=== PATIENT | male | born 1960 | race Caucasian/White ===

== ENCOUNTER 2016-12-12 05:54 | Day surgery (SDC) | payer BC ==
[2016-12-12] MEDS ORDERED: ceFAZolin 2 GM/DEXTROSE 100 ML IV ONE (06:00)
[2016-12-12] MEDS ORDERED: LR 1,000 ML IV ONE (06:17)
[2016-12-12] MEDS ORDERED: LIDOCAINE 1% 5 ML SDV ID PRN (06:17)
[2016-12-12] MEDS ORDERED: LIDOCAINE 1% 5 ML SDV ONE (06:19)
[2016-12-12] MEDS ORDERED: fentaNYL 100 MCG/2 ML INJ ONE ×3 (06:49→08:56)
[2016-12-12] MEDS ORDERED: PROPOFOL 200 MG/20 ML VIAL ONE ×2 (06:50)
[2016-12-12] MEDS ORDERED: LIDOCAINE 2% 100 MG/5 ML SYR IVP ONE (06:52)
[2016-12-12] MEDS ORDERED: BUPIVACAINE 0.5% 30 ML SDV ONE (07:07)
[2016-12-12] MEDS ORDERED: MIDAZOLAM 2 MG/2 ML VIAL ONE (07:07)
[2016-12-12] MEDS ORDERED: DEXAMETHASONE 4 MG/ML VIAL ONE (07:44)
[2016-12-12] MEDS ORDERED: ONDANSETRON 4 MG/2 ML VIAL ONE (07:44)
[2016-12-12] MEDS ORDERED: KETOROLAC 30 MG/1 ML SDV ONE (08:09)
[2016-12-12] MEDS ORDERED: SUGAMMADEX SODIUM 200 MG/2 ML VIAL IVP ONE (08:10)
[2016-12-12] MEDS ORDERED: OXYCODONE/APAP 5/325 TAB ONE (09:24)
--- NOTE | 2016-12-18 15:01 | GOP ---
[f rep st] OPERATIVE REPORT DATE OF OPERATION: 12/12/2016 SURGEON: Klever Roger MD COSMETICS MACHINE OPERATOR: GLENYS Bowman ANESTHESIOLOGIST: Dr. Zelalem Aguilar PREOPERATIVE DIAGNOSIS: Bilateral inguinal hernias and umbilical hernia. POSTOPERATIVE DIAGNOSIS: Bilateral inguinal hernias and umbilical hernia. PROCEDURE PERFORMED: Laparoscopic bilateral inguinal hernia repairs with mesh and umbilical hernia r epair. FINDINGS: Patient was found to have a 1 cm umbilical defect. He had a left large, indirect cord lip matthew and a right direct weakness on the other side. DESCRIPTION OF PROCEDURE: Patient taken to the operating room, where he received satisfactory genera l endotracheal anesthesia. He was prepped and draped in the usual sterile fashion. Infraumbilical incision was made. Dissection was carried down to the rectus sheath, which was incise d. A subfascial tunnel was developed in the preperitoneal space and was dissected free with a balloo n dissector, which was replaced with a CO2 insufflation trocar. Two other trocars were placed in the lower midline under direct vision. Brett's ligament was exposed bilaterally. The cords were mobilized bilaterally. On the left, a lar ge, indirect lipoma was dissected free along with a small trigger indirect sac. These were reduced. There was no direct defect. Covidien polyester mesh patch was placed over the inguinal floor, ancho red in place with AbsorbaTack, securing it to Brett's ligament, the lacunar ligament, the anterior a bdominal wall, and lateral abdominal wall outside the internal ring. Attention was turned to the right side, where a direct defect was dissected free and reduced. A doni lar patch was placed on that side and anchored in the same manner. Hemostasis was assured. Trocars were then removed under direct vision and Pneumopreperitoneum was released. Trocar sites wer e closed with 0 Vicryl for the fascia, 4-0 Monocryl subcuticular stitch for the skin. Attention was turned to the umbilical hernia defect. This was dissected free. The sac was opened an d its contents reduced. It was a small defect, less than 1 cm, and closed in 2-layer fashion with 0 Surgilon mattress sutures in a [id number] type closure. The subcu was closed with 3-0 Vicryl an d the skin with a 4-0 Monocryl subcuticular stitch. He tolerated the procedure well, was taken to recovery room in good condition. /[id number]/MODL
== END 2016-12-12 11:00 | disposition home or self-care (01) ==
LOC: FSGY 05:54
PROVIDERS: ATTEND Surgery
PROC: 0YUA4JZ Supplement Bilateral Inguinal Region with Synthetic Substitute, Percutaneous Endoscopic Approach (ICD-10-PCS; principal; 2016-12-12 07:15)
PROC: 0WQF4ZZ Repair Abdominal Wall, Percutaneous Endoscopic Approach (ICD-10-PCS; principal; 2016-12-12 07:15)
DX: K40.20 Bilateral inguinal hernia, without obstruction or gangrene, not specified as recurrent (principal); K42.9 Umbilical hernia without obstruction or gangrene; I10 Essential (primary) hypertension
CPT/HCPCS: 49650; 49652; C1727; C1781; J0690; J1100; J1885; J2001; J2250; J2405; J2704; J3010